=== PATIENT | female | born 1950 | race Caucasian/White ===

== ENCOUNTER → 2018-03-29 06:58 | Day surgery (SDC) | payer MEDICARE, OTHER, SELFPAY ==
[2018-03-29] MEDS: PROPARACAINE 0.5% OPHTH SOL 2 DROPS EYE-OP (07:22)
[2018-03-29] MEDS: CYCLOPENTOLATE 1% OPHTH 2.5 DROPS, PHENYLEPHRINE 2.5% OPHTH 2.5 DROPS, TROPICAMIDE 1% O... EYE-OP (07:25)
[2018-03-29 07:26] VITALS: BP 162/78; PULSE 70; RESP 18; TEMP 35.9; O2SAT 98; BMI 42.6
--- NOTE | 2018-03-29 07:43 | SUR.OPER ---
Supine on eye stretcher, head on extension cradle secured with tape. Arms tucked at sides with blanket. Pillow under knees.
[2018-03-29] MEDS: CHONDROIDTIN/SOD HYALURONATE 1.05 ML SYRINGE INTRAOCULA ×2 (07:52→08:09)
[2018-03-29] MEDS: TETRACAINE 0.5% OPHTH DROPS 15 ML 1 DROPS EYE-LEFT (08:01)
[2018-03-29] MEDS: BALANCED SALT IRRIG SOLN NO.2 500 ML, EPINEPHrine 1 MG IRR (08:05)
[2018-03-29] MEDS: LIDOCAINE JELLY 2% 5 ML 1 APPLIC TOP (08:05)
[2018-03-29] MEDS: MOXIFLOXACIN OPHTH DROPS 3 ML BOTTLE 2 DROPS INJ (08:14)
[2018-03-29] MEDS: PHENYLEPHRINE/LIDOCAINE 3ML VIAL (OR) EYE-OP (08:14)
[2018-03-29] MEDS: TRIAMCINOLONE 50 MG/5 ML VIAL INJ (08:15)
[2018-03-29 08:24] VITALS: BP 127/62; TEMP 36.2
--- NOTE | 2018-03-29 08:33 | PM.OP.1 ---
Operative Date/Time/Diagnoses - Pre-op diagnosis: Cataract Left eye Post-op diagnosis: same Procedure & Clinicians Procedure: Cataract Surgery Same procedure as scheduled: Yes Surgeon: Enoch Jacobs Anesthesia Type: Other (Topical) Operative Notes Procedure in detail: Patient brought to the operating suite. Tetracaine drops placed in the left eye. Marking instrument was used to angie the vertical and horizontal meridians. Patient was prepped and draped in sterile manner. Wire lid speculum was placed in the eye. Marking pen was used to angie the 65 degree meridian. Betadine drops were placed on the eye. This was irrigated. Lidocaine jelly was placed on the eye. A paracentesis port was created with a side-port blade. 2 mL lidocaine phenylephrine was injected into the anterior chamber. The anterior chamber was deepened with viscoelastic. 2.65 mm keratome was used to create a temporal clear corneal incision. Cystitome and Utrata forceps were used to create continuous tear capsulorrhexis. Balanced salt solution was used to hydro dissect the nucleus. The phacoemulsification handpiece was inserted and the nucleus was removed using the stop and chop technique. The irrigation aspiration handpiece was inserted and the remaining cortex was removed. Anterior chamber was deepened with viscoelastic. An Seth [id number] intraocular lens with a power of 14.5 was injected into the capsular bag. Irrigation aspiration handpiece was inserted and the remaining viscoelastic was removed. The lens was rotated to the 65 degree meridian. Incision was hydrated with balanced salt solution and found to be leak free with pressure with Weck-Tootie sponges. 0.1 mL Vigamox injected anterior chamber. 0.3 mL Kenalog 10 mg was injected subconjunctivally. Lid speculum was removed patient left operating room in excellent condition. Complications: none Condition: stable Disposition: same day surgery
--- NOTE | 2018-03-29 08:40 | SUR.PHASEII ---
Dr. Anguiano didn't need want a blood glucose post-op.
--- NOTE | 2018-03-29 08:42 | PM.PREOP ---
Pre-operative Note Interval Note Pre-op Check: History & Physical Reviewed
== END ==
PROVIDERS: PCP Nurse Practitioner Family; Visit Provider Ophthalmology
DX: H25.12 Age-related nuclear cataract, left eye (principal); E11.9 Type 2 diabetes mellitus without complications; Z79.84 Long term (current) use of oral hypoglycemic drugs; R01.1 Cardiac murmur, unspecified; I10 Essential (primary) hypertension
CPT/HCPCS: J0171; J2250; J3010; J3301; V2787

== ENCOUNTER → 2018-04-21 10:24 | Outpatient (CLI) | payer MEDICARE, OTHER, SELFPAY ==
[2018-04-21 11:26] LABS: Albumin 4.2 g/dL (3.5-5.0); Blood Urea Nitrogen 21 mg/dL (7-17); Calcium 10.1 mg/dL (8.4-10.2); Carbon Dioxide 26 mmol/L (22-32); Chloride 103 mmol/L (98-107); Estimated Glomerular Filt Rate > 60.0 mL/min (>60); Glucose 156 mg/dL (80-110); HEMOLYSIS < 15 (0-50); Phosphorous 3.6 mg/dL (2.8-4.1); Potassium 4.7 mmol/L (3.4-5.1); Sodium 141 mmol/L (137-145)
== END ==
PROVIDERS: PCP Nurse Practitioner Family; Visit Provider Nurse Practitioner Family
DX: E11.8 Type 2 diabetes mellitus with unspecified complications (principal); L90.0 Lichen sclerosus et atrophicus; F33.9 Major depressive disorder, recurrent, unspecified; I10 Essential (primary) hypertension; E03.9 Hypothyroidism, unspecified; R53.83 Other fatigue; E87.5 Hyperkalemia
CPT/HCPCS: 36415; 80069; 83036

== ENCOUNTER 2018-05-03 13:48 | Day surgery (SDC) | payer MEDICARE, OTHER, SELFPAY ==
[2018-05-03] MEDS: PROPARACAINE 0.5% OPHTH SOL 2 DROPS EYE-OP (14:25)
[2018-05-03] MEDS: CATARACT EYE COMPOUND (10 DROPS/SYRINGE) 3 DROPS EYE-OP (14:31)
[2018-05-03 14:34] VITALS: BP 161/69; PULSE 77; RESP 16; TEMP 36.8; O2SAT 98; BMI 43.2
--- NOTE | 2018-05-03 15:24 | PM.PREOP ---
Pre-operative Note Interval Note Pre-op Check: History & Physical Reviewed by Physician
--- NOTE | 2018-05-03 15:24 | PM.OP.1 ---
Operative Date/Time/Diagnoses - Pre-op diagnosis: Cataract Right eye Post-op diagnosis: same Procedure & Clinicians Procedure: Cataract Surgery Same procedure as scheduled: Yes Surgeon: Enoch Jacobs Anesthesia Type: MAC +/- and Sedation Operative Notes Procedure in detail: Patient brought to the operating suite. Tetracaine drops placed in the right eye. Marking instrument was used to angie vertical and horizontal meridians. Patient was prepped and draped in sterile manner. Wire lid speculum was placed in the eye. Marking instrument was used to angie 115 degree meridian. Betadine drops were placed on the eye. This was irrigated. Lidocaine jelly was placed on the eye. A paracentesis port was created with a side-port blade. 0.1 mL 1% preservative free lidocaine was injected into the anterior chamber. The anterior chamber was deepened with viscoelastic. 2.6 mm keratome was used to create a temporal clear corneal incision. Cystotome and Utrata forceps were used to create continuous tear capsulorrhexis. Balanced salt solution was used to hydro dissect the nucleus. The phacoemulsification handpiece was inserted and the nucleus was removed using the stop and chop technique. The irrigation aspiration handpiece was inserted and the remaining cortex was removed. Anterior chamber was deepened with viscoelastic. An Seth [id number] intraocular lens with a power of 14.5 was injected into the capsular bag. Irrigation aspiration handpiece was inserted and the remaining viscoelastic was removed. Lens was rotated to the 115 degree meridian. Incision was hydrated with balanced salt solution and found to be leak free with pressure with Weck-Tootie sponges. 0.1 mL Vigamox injected anterior chamber. 0.3 mL Kenalog 10 mg was injected subconjunctivally. Lid speculum was removed. The patient left the operating room in excellent condition. Complications: none Condition: stable Disposition: same day surgery
[2018-05-03] MEDS: CHONDROIDTIN/SOD HYALURONATE 1.05 ML SYRINGE INTRAOCULA (15:39)
[2018-05-03] MEDS: TRIAMCINOLONE 50 MG/5 ML VIAL INJ (15:39)
[2018-05-03] MEDS: MOXIFLOXACIN OPHTH DROPS 3 ML BOTTLE 2 DROPS INJ (15:39)
[2018-05-03] MEDS: TETRACAINE 0.5% OPHTH DROPS 15 ML 2 DROPS EYE-RIGHT (15:40)
[2018-05-03] MEDS: BALANCED SALT IRRIG SOLN NO.2 500 ML, EPINEPHrine 1 MG IRR (15:40)
[2018-05-03] MEDS: PHENYLEPHRINE/LIDOCAINE 3ML VIAL (OR) EYE-OP (15:41)
[2018-05-03] MEDS: LIDOCAINE JELLY 2% 5 ML 1 APPLIC TOP (15:42)
[2018-05-03 15:55] VITALS: BP 158/68; PULSE 76; RESP 16; TEMP 36.6; O2SAT 98
== END 2018-05-03 16:16 | disposition home or self-care (01) ==
PROVIDERS: PCP Nurse Practitioner Family; Visit Provider Ophthalmology
DX: H25.11 Age-related nuclear cataract, right eye (principal); E11.9 Type 2 diabetes mellitus without complications; Z79.84 Long term (current) use of oral hypoglycemic drugs; I10 Essential (primary) hypertension; R01.1 Cardiac murmur, unspecified
CPT/HCPCS: J0171; J2250; J3010; J3301; V2787

== ENCOUNTER → 2018-09-22 14:30 | Outpatient (CLI) | payer MEDICARE, OTHER, SELFPAY ==
--- NOTE | 2018-09-22 | DI.MG.S_ITS ---
UNILATERAL LEFT DIGITAL DIAGNOSTIC MAMMOGRAM 3D/2D SHORT-TERM FOLLOW-UP: 09/22/2018 CLINICAL: Patient returns for a 6 month follow up of the left breast. Comparison is made to exams dated: 01/18/2018 ultrasound, 01/18/2018 mammogram, and 01/06/2018 mammogram - [facility]. There are scattered fibroglandular elements in left breast. Previously identified 0.7 cm oval low density asymmetry with a circumscribed margin in the left breast at 11 o'clock middle depth seen on comparison diagnostic mammogram of 01/18/2018 is no longer seen. No significant masses, calcifications, or other findings are seen in the breast. IMPRESSION: INCOMPLETE: NEEDS ADDITIONAL IMAGING EVALUATION Previously identified 0.7 cm oval low density asymmetry with a circumscribed margin in the left breast at 11 o'clock middle depth seen on comparison diagnostic mammogram of 01/18/2018 is no longer seen. A targeted ultrasound is recommended and will be performed immediately following this exam. This exam was interpreted at Station ID: [id number]. NOTE: For mammograms, a report in lay terms will be sent to the patient. Approximately 15% of breast malignancies will not be visualized mammographically. In the management of a palpable breast mass, a negative mammogram must not discourage biopsy of a clinically suspicious lesion. Electronically Signed By: Colby Houser M.D. ecl/:09/23/2018 10:27:13 letter sent: Additional Imaging Needed ACR BI-RADS Category 0: Incomplete 3340F
--- NOTE | 2018-09-22 | DI.US.S_ITS ---
LIMITED ULTRASOUND OF LEFT BREAST: 09/22/2018 CLINICAL: Follow up from addtional views. Comparison is made to exams dated: 09/22/2018 mammogram, 01/18/2018 ultrasound, and 01/18/2018 mammogram - [facility]. Real-time and Doppler ultrasound of the left breast 10 o'clock region were performed. Toscano scale images of the real-time examination were reviewed. Prior comparison ultrasound of 01/18/2018 demonstrated a 0.6 cm x 0.5 cm x 0.6 cm oval avascular mixed echogenic mass with an indistinct margin in the left breast at 10 o'clock position 20 cm from the nipple. This oval mass could not be detected on the current exam, and appears to have resolved. IMPRESSION: NEGATIVE Previously identified 0.6 cm mass in the left breast at 10 o'clock position 20 cm from the nipple on comparison ultrasound of 01/18/2018 is no longer detectable on the current exam. This mass was previously suspected to represent fat necrosis/injury and appears to have resolved. There is no sonographic evidence of malignancy in the imaged left breast. Return to annual mammogram screening schedule is recommended, next due in December 2018. This exam was interpreted at Station ID: [id number]. Electronically Signed By: Colby Houser M.D. ecl/:09/23/2018 10:32:11 letter sent: Normal Exam Ultrasound BI-RADS: 1 Negative
== END ==
PROVIDERS: Visit Provider Nurse Practitioner Family
DX: R92.8 Other abnormal and inconclusive findings on diagnostic imaging of breast (principal)
CPT/HCPCS: 76642; 77065; G0279

== ENCOUNTER → 2019-01-26 11:21 | Outpatient (CLI) | payer MEDICARE, OTHER, SELFPAY ==
--- NOTE | 2019-01-26 | DI.RAD.S_ITS ---
PROCEDURE: XR LUMBAR SPINE 2-3V INDICATIONS: LOW BACK PAIN TECHNIQUE: 3 views of the lumbar spine were acquired. COMPARISON: None. FINDINGS: Bones: 6 [id number] vertebrae are present. The last lumbar-type vertebra is designated as the lumbarized S1 for the purpose of this report. There is grade 1 anterolisthesis of L5 on S1. No vertebral body compression fractures. No suspicious bony lesions. There is mild to moderate degenerative disc disease throughout the lumbar spine. Moderate to severe facet arthropathy at L3-L4, L4-L5 and L5-S1. Soft tissues: Overlying bowel gas pattern is normal. No suspicious soft tissue calcifications. IMPRESSION: 1. Transitional anatomy. Please confirm vertebral levels prior to any intervention procedure with surgery. 2. Degenerative disc and facet disease in lumbar spine. Dictated by: Mike Sheridan M.D. on 01/26/2019 at 17:23 Approved by: Mike Sheridan M.D. on 01/26/2019 at 17:27
== END ==
PROVIDERS: PCP Physician Assistant; Visit Provider Physician Assistant
DX: M54.5 Low back pain (principal); M51.36 Other intervertebral disc degeneration, lumbar region; M47.816 Spondylosis without myelopathy or radiculopathy, lumbar region; M47.817 Spondylosis without myelopathy or radiculopathy, lumbosacral region
CPT/HCPCS: 72100

== ENCOUNTER → 2019-02-15 07:34 | Outpatient (CLI) | payer MEDICARE, OTHER, SELFPAY ==
--- NOTE | 2019-02-15 | DI.MRI.S_ITS ---
PROCEDURE: MR LUMBAR SPINE WO CON INDICATIONS: LOW BACK PAIN TECHNIQUE: Noncontrast sagittal T1 spin echo and T2 fast echo, sagittal STIR, axial T1 and T2 fast spin echo through the lumbar spine. In cases with scoliosis, additional coronal T2 fast spin echo may be performed. COMPARISON: [facility], CR, XR LUMBAR SPINE 2-3V, 01/26/2019, 11:27. FINDINGS: Image quality: Excellent. Alignment and Curvature: There is minimal retrolisthesis at T12-L1, L1-L2, and L3-L4. Mild grade 1 anterolisthesis is seen at L4-L5. No associated pars defects are seen. Minimal dextroconvex scoliotic curvature can be seen on relay operator images. Bone Marrow: Marrow is of normal overall signal. No acute vertebral body compression fractures. Spinal Cord: Conus medullaris terminates at the L1 level. Visualized cord demonstrates normal signal and size. Paraspinous Soft Tissues: No paravertebral masses. Lower thoracic spine degenerative changes are seen, including bridging anterior osteophytes. There is partial fusion of the T10 and T11 vertebral bodies anteriorly and on the left. Mild to moderate neural foraminal narrowing can be seen at T10-T11 and T11-T12. T12-L1: Moderate loss of disc height is seen. Loss of disc signal is seen. Bridging anterior osteophytes are seen. Posteriorly projecting endplate osteophytes are seen at this level. Moderate disc bulge is seen, which is eccentric to the left. There is a left foraminal/left lateral disc osteophyte protrusion seen. There is moderate to severe left-sided neural foraminal narrowing seen, with associated impingement upon the exiting T12 nerve root, as on series 3 image 12. Mild right-sided neural foraminal narrowing is seen. Minimal central canal narrowing is seen. L1-L2: Mild loss of disc height is seen. Loss of disc signal is seen. Moderate disc bulge is seen, which is eccentric to the left. There is a central disc protrusion seen. [id number]-[id number] facet hypertrophy is seen. There is associated moderate hypertrophy of the ligamentum flavum. Moderate bilateral neural foraminal narrowing is seen at this level. Moderate central canal narrowing is seen. L2-L3: The disc height is well-preserved. Loss of disc signal is seen at this level. Moderate generalized disc bulge is seen. Moderate facet joint hypertrophy is seen. There is moderate right-sided and mild to moderate left-sided neural foraminal narrowing seen. Moderate central canal narrowing is seen. L3-L4: Mild to moderate loss of disc height and disc signal are seen. Reactive marrow endplate changes are seen, which are hyperintense on T1-weighted and T2-weighted imaging and most consistent with fatty metaplasia (Modic type II changes). Moderate to prominent disc bulge is seen, which is eccentric to the right. Moderate to prominent facet hypertrophy is seen. There is moderate to severe right-sided neural foraminal narrowing, with associated impingement upon the exiting right L3 nerve root. Moderate left-sided neural foraminal narrowing is seen. At least moderate central canal narrowing is seen. L4-L5: The disc height is well-preserved. Loss of disc signal is seen at this level. Moderate disc bulge is seen, which is eccentric to the left. There is a left lateral disc osteophyte protrusion seen, as on series 5 image 28. Moderate to prominent facet hypertrophy is seen. There is mild right-sided and no left-sided neural foraminal narrowing seen. Moderate central canal narrowing is seen. L5-S1: The disc height is well-preserved. Loss of disc signal is seen at this level. Moderate disc bulge is seen, which is eccentric to the left. Prominent facet hypertrophy is seen. There is mild right-sided and no significant left-sided neural foraminal narrowing seen. Mild central canal narrowing is seen. IMPRESSION: Multiple levels of relatively prominent thoracolumbar degenerative change are seen. Dictated by: Rd Eubanks M.D. on 02/15/2019 at 9:04 Approved by: Rd Eubanks M.D. on 02/15/2019 at 9:13
== END ==
PROVIDERS: PCP Physician Assistant; Visit Provider Physician Assistant
DX: M54.5 Low back pain (principal); M47.815 Spondylosis without myelopathy or radiculopathy, thoracolumbar region; M47.816 Spondylosis without myelopathy or radiculopathy, lumbar region
CPT/HCPCS: 72148

== ENCOUNTER → 2019-02-24 13:33 | Outpatient (CLI) | payer MEDICARE, OTHER, SELFPAY ==
--- NOTE | 2019-02-24 | DI.MG.S_ITS ---
BILATERAL DIGITAL SCREENING MAMMOGRAM 3D/2D WITH CAD: 02/24/2019 CLINICAL: Routine screening. Family history of breast cancer. Comparison is made to exams dated: 01/06/2018 mammogram and 10/05/2016 mammogram - [facility]. There are scattered fibroglandular elements in both breasts. Current study was also evaluated with a Computer Aided Detection (CAD) system. There are benign calcifications in both breasts. No significant masses, calcifications, or other findings are seen in either breast. There has been no significant interval change. IMPRESSION: There is no mammographic evidence of malignancy. A 1 year screening mammogram is recommended. This exam was interpreted at Station ID: [id number]. NOTE: For mammograms, a report in lay terms will be sent to the patient. Approximately 15% of breast malignancies will not be visualized mammographically. In the management of a palpable breast mass, a negative mammogram must not discourage biopsy of a clinically suspicious lesion. Electronically Signed By: Ki castro/pb:02/24/2019 19:52:04 letter sent: Normal Exam ACR BI-RADS Category 2: Benign Finding(s) 3342F
== END ==
PROVIDERS: PCP Physician Assistant; Visit Provider Physician Assistant
DX: Z12.31 Encounter for screening mammogram for malignant neoplasm of breast (principal); Z80.3 Family history of malignant neoplasm of breast
CPT/HCPCS: 77063; 77067

== ENCOUNTER → 2019-12-25 15:46 | Outpatient (CLI) | payer MEDICARE, OTHER, SELFPAY ==
--- NOTE | 2019-12-25 | DI.RAD.S_ITS ---
PROCEDURE: XR FOOT LT MIN 3V INDICATIONS: LEFT FOOT PAIN TECHNIQUE: 3 views of the foot were acquired. COMPARISON: None. FINDINGS: Bones: No fractures or dislocations. No suspicious bony lesions. Scattered IP degenerative narrowing is present most notable the first MTP joint. Calcaneal spur is present. Soft tissues: No tibiotalar joint effusion. Achilles tendon appears normal. IMPRESSION: Degenerative changes without visualized acute osseous abnormality. Dictated by: Ayaka Dow M.D. on 12/25/2019 at 17:03 Approved by: Ayaka Dow M.D. on 12/25/2019 at 17:03
== END ==
PROVIDERS: PCP Physician Assistant; Referring Provider Student in an Organized Health Care Education/Training Program; Visit Provider Student in an Organized Health Care Education/Training Program
DX: M79.672 Pain in left foot (principal); M77.32 Calcaneal spur, left foot
CPT/HCPCS: 73630

== ENCOUNTER → 2021-02-21 11:41 | Outpatient (CLI) | payer MEDICARE, OTHER, SELFPAY ==
--- NOTE | 2021-02-21 11:42 | DI.MG.S_ITS ---
BILATERAL DIGITAL SCREENING MAMMOGRAM 3D/2D WITH CAD: 02/21/2021 CLINICAL: Routine screening. Family history of breast cancer. Comparison is made to exams dated: 02/24/2019 mammogram, 01/06/2018 mammogram, and 09/22/2018 mammogram - [facility]. The tissue of both breasts is predominantly fatty. Current study was also evaluated with a Computer Aided Detection (CAD) system. There are benign calcifications in both breasts. No significant masses, calcifications, or other findings are seen in either breast. There has been no significant interval change. IMPRESSION: BENIGN There is no mammographic evidence of malignancy. A 1 year screening mammogram is recommended. This exam was interpreted at Station ID: [id number]. NOTE: For mammograms, a report in lay terms will be sent to the patient. Approximately 15% of breast malignancies will not be visualized mammographically. In the management of a palpable breast mass, a negative mammogram must not discourage biopsy of a clinically suspicious lesion. Electronically Signed By: Boris hoffman/pb:02/21/2021 12:20:45 letter sent: Normal Exam ACR BI-RADS Category 2: Benign Finding(s) 3342F
== END ==
PROVIDERS: PCP Physician Assistant; Referring Provider Physician Assistant; Visit Provider Physician Assistant
DX: Z12.31 Encounter for screening mammogram for malignant neoplasm of breast (principal)
CPT/HCPCS: 77063; 77067

== ENCOUNTER 2021-05-19 20:06 | Emergency (ER) | payer MEDICARE, OTHER, SELFPAY ==
[2021-05-19 20:09] VITALS: BP 193/80; PULSE 90; RESP 15; TEMP 36.7; O2SAT 99; BMI 42.0
[2021-05-19 20:29] LABS: Add Manual Diff / Slide Review NO; Basophils Absolute Auto 100 /uL (0-100); Basophils Percent Auto 0.8 % (0-2); Eosinophils Absolute Auto 500 /uL (0-450); Eosinophils Percent Auto 4.1 % (2-4); Hematocrit 36.2 % (36-46); Hemoglobin 11.8 g/dL (12.0-16.0); Lymphocytes Absolute Auto 3100 /uL (1100-4500); Lymphocytes Percent Auto 26.1 % (25-40); Mean Corpuscular HGB Conc 32.8 % (30-36); Mean Corpuscular Hemoglobin 28.8 PG (26-34); Mean Corpuscular Volume 87.8 fL (80-100); Monocytes Absolute Auto 800 /uL (0-900); Monocytes Percent Auto 6.5 % (3-14); Neutrophils Absolute Auto 7400 /uL (1500-7000); Neutrophils Percent Auto 62.5 % (50-75); Platelet Count 260 X10^3/uL (150-400); Red Blood Cell Count 4.12 X10^6/uL (4.0-5.2); Red Cell Distribution Width 14.4 % (11.6-14.8); White Blood Cell Count 11.8 X10^3/uL (4.5-11.0)
[2021-05-19 20:44] LABS: C-Reactive Protein Quant 1.2 mg/dL (<1.0); Uric Acid 8.3 mg/dL (2.5-6.2)
[2021-05-19 21:07] LABS: Erythrocyte Sedimentation Rate 29 MM/HR (0-20)
[2021-05-19] MEDS: HYDROCODONE/ACET 5/325 PREPACK 1 BOTTLE MISC (22:22)
[2021-05-19] MEDS: COLCHICINE 0.6 MG TABLET 1.8 MG PO (22:30)
[2021-05-19 22:34] VITALS: BP 178/72; PULSE 77; RESP 18; O2SAT 99
--- NOTE | 2021-05-20 06:19 | ED_ITS ---
HPI - Extremity Problem General Chief complaint: Extremity Problem,Nontraumatic Stated complaint: gout or broken foot Time Seen by Provider: 05/19/21 20:15 Source: patient Mode of arrival: Ambulatory Limitations: no limitations History of Present Illness HPI Narrative: 71-year-old female nonsmoker with history of hypertension diabetes presents with a chief complaint of gradually worsening right foot pain over the past few days. She denies any obvious injury or overuse. She states over the past day or to the ball of her foot and base of her big toe has become increasingly painful and red. She states she does have a history of gout and this does remind her of it. She denies any numbness, tingling or weakness. She denies any fever or chills. She states her pain is worse with motion and improves with rest. She does state that she has been eating crab but denies any other dietary indiscretions. Related Data Home Medications Medication Instructions Recorded Confirmed [DIABETIC VITAMINS] PO QDAY #0 08/19/16 01/17/20 aspirin 81 mg tablet,delayed 81 mg PO DAILY 12/18/19 01/17/20 release insulin glargine U-300 conc 300 30 unit SUBCUT DAILY 12/18/19 01/17/20 unit/mL (1.5 mL) subcutaneous pen lisinopril 40 mg tablet 40 mg PO DAILY 12/18/19 01/17/20 melatonin 5 mg tablet 5 mg PO BEDTIME PRN 12/18/19 01/17/20 metformin 750 mg tablet,extended 750 mg PO DAILY 12/18/19 01/17/20 release 24 hr methocarbamol 500 mg tablet 500 mg PO QID PRN 12/18/19 01/17/20 Previous Rx's Medication Instructions Recorded acyclovir 400 mg tablet 400 mg PO BID #45 tab 09/16/16 pneumoc 13-kaiden conj-dip cr(PF) 0.5 0.5 ml IM X1 #1 ea 09/16/16 mL IM syringe (Prevnar 13 (PF)) levothyroxine 137 mcg tablet 137 mcg PO QAM #90 tab 05/31/17 (Synthroid) zoster vaccine live (PF) 19,400 0.5 ml SQ X1 #0.5 ml 05/31/17 unit/0.65 mL subcutaneous suspension (Zostavax (PF)) Glucose: Home Monitor / BID #1 06/03/17 Glucose: Test Strips str BID #100 06/03/17 Test Strips - Freestyle str BID #180 06/10/17 indomethacin 25 mg capsule 25 mg PO TID #30 cap 05/19/21 Allergies Allergy/AdvReac Type Severity Reaction Status Date / Time Sulfa (Sulfonamide Allergy Severe SWOLLEN Verified 03/29/18 07:20 Antibiotics) THROAT [SULFA (SULFONAMIDE ANTIBIOTICS)] exenatide [From BYDUREON] AdvReac Severe Pancreatitis Verified 03/29/18 07:20 Swelling in throat Mpuhojt-Aqh-Aip Reductase AdvReac Intermediate RASH AND Verified 03/29/18 07:20 Inhibitor HIVES [ISSKOPT-DYK-IEI REDUCTASE INHIBITOR] Review of Systems Review of Systems Narrative: GENERAL: Denies chills, fatigue, malaise, fever, sweats. HEENT: Denies sinus pain, ear pain, sore throat, difficulty swallowing, dizziness. RESPIRATORY: Denies dyspnea, cough, wheezing, hemoptysis, sputum. CARDIOVASCULAR: Denies chest pain, palpitations, orthopnea, edema, GASTROINTESTINAL: Denies nausea, vomiting, abdominal pain, diarrhea, constipation, melena. : Denies dysuria, frequency, incontinence, hematuria, urinary retention. MUSCULOSKELETAL: see HPI SKIN: see HPI NEUROLOGIC: Denies weakness, headache, numbness, change in speech, confusion, seizures, incoordination. PSYCHIATRIC: No concerning psychosocial issues. 12 point review of systems is negative except for those stated above Patient History Medical History (Updated 05/19/21 @ 22:03 by Lambert Pagan DO) Diabetes Fatigue HTN (hypertension) Morbid obesity with body mass index (BMI) of 40.0 to 49.9 Obstructive sleep apnea Sleep apnea Snoring Surgical History Status post cholecystectomy Family History Brother Coronary artery disease involving [place] coronary artery of [place] heart, angina presence unspecified Peripheral polyneuropathy Father Type 2 diabetes mellitus with other circulatory complication, unspecified correction insulin use status History of asbestosis Alcoholism Grandmother History of breast cancer Mother Chronic obstructive pulmonary disease, unspecified COPD type History of breast cancer History of cervical cancer Alcoholism Sister History of breast cancer Controlled type 2 diabetes mellitus without complication, unspecified correction insulin use status Social History household members: none Smoking Status: Never smoker Smoking Status: Never smoker alcohol intake frequency: 0-2 drinks per day Substance Use Type: does not use Exam Narrative Exam Narrative: GEN: AOx3 and in mild distress EYES: Pupils are equal, round, and reactive to light and accommodation. Extraoccular muscles are intact bilaterally. There is no subconjunctival hemorrhage or exudate. CHEST: Lungs are clear to auscultation bilaterally and free of wheezes, rales, or rhonchi. Heart rate is regular rhythm, there are no murmurs, clicks, rubs, or gallops. There is no chest wall tenderness. ABD: Abdomen is soft and nontender. There is no guarding or rebound. Bowel sounds are normal in all 4 quadrants. There is no mass or organomegaly. EXT: Patient has pain, redness, warmth and swelling of the 1st MTP of her right foot. There is no fluctuance, induration or drainage. There are no red streaks.. SKIN: Warm, pink, and dry. No erythema or rash Initial Vital Signs Initial Vital Signs: Vital Signs Temperature 98.1 F 05/19/21 20:09 Pulse Rate 90 05/19/21 20:09 Respiratory Rate 15 05/19/21 20:09 Blood Pressure 193/80 H 05/19/21 20:09 Pulse Oximetry 99 05/19/21 20:09 Course Orders Ordered: Discontinued Medications Hydrocodone Bitart/Acetaminophen (Hydrocodone/Acet 5/325 Prepack) 1 bottle MISC SEEINSTR ONE Stop: 05/19/21 22:02 Last Admin: 05/19/21 22:22 Dose: 1 bottle Documented by: EVITA Colchicine (Colchicine 0.6 Mg Tablet) 1.8 mg PO NOW ONE Stop: 05/19/21 22:00 Last Admin: 05/19/21 22:30 Dose: 1.8 mg Documented by: EVITA Indomethacin (Indomethacin 25 Mg Capsule) 25 mg PO NOW ONE Stop: 05/19/21 22:00 Last Admin: 05/19/21 22:22 Dose: Not Given Documented by: EVITA Vital Signs Vital signs: Vital Signs - 8 hr 05/19/21 22:34 Pulse Rate 77 Respiratory Rate 18 Blood Pressure 178/72 H Pulse Oximetry 99 MDM - Extremity (Nontraumatic) Lab Data Result diagrams: 05/19/21 20:23 Labs: Lab Results 05/19/21 05/19/21 Range/Units 20:23 20:23 WBC 11.8 H (4.5-11.0) X10^3/uL RBC 4.12 (4.0-5.2) X10^6/uL Hgb 11.8 L (12.0-16.0) g/dL Hct 36.2 (36-46) % MCV 87.8 (80-100) fL MCH 28.8 (26-34) PG MCHC 32.8 (30-36) % RDW 14.4 (11.6-14.8) % Plt Count 260 (150-400) X10^3/uL Neut % (Auto) 62.5 (50-75) % Lymph % (Auto) 26.1 (25-40) % Marshall % (Auto) 6.5 (3-14) % Eos % (Auto) 4.1 H (2-4) % Baso % (Auto) 0.8 (0-2) % Neut # (Auto) 7400 H (1703-1025) /uL Lymph # (Auto) 3100 (8754-5410) /uL Marshall # (Auto) 800 (0-900) /uL Eos # (Auto) 500 H (0-450) /uL Baso # (Auto) 100 (0-100) /uL ESR 29 H (0-20) MM/HR Uric Acid 8.3 H (2.5-6.2) mg/dL C-Reactive Protein 1.2 H (<1.0) mg/dL MDM Narrative Medical decision making narrative: Multiple diagnoses considered including cellulitis, gout, orthopedic injury. Given the elevation in inflammatory markers as well as uric acid, her recent dietary indiscretions and history of gout this seems to be the most likely diagnosis. Return precautions given and questions answered to her apparent satisfaction Discharge Plan Departure Patient Disposition: Home Clinical Impression: Gout attack Qualifiers: Gout site: toe Gout etiology: unspecified cause Laterality: right Qualified Code(s): M10.9 - Gout, unspecified Instructions: DI for Gout Activity Restrictions/Additional Instructions: *You have been diagnosed with [gouty arthritis] *What to do: *Please continue to take your regular medications as directed. [x ] New medication prescriptions sent to your pharmacy: [ ] [ ] New medication written as a paper prescription [ ] No new medications given *Please follow up with your primary care provider in 2-3 days, call for an appointment. Let them know you were seen in the Emergency Department and that we ask that you be seen in follow up. We will electronically transmit a record of today's note if your PCP is in our system *If you do not have a primary care provider please contact the [facility] Resource line at [phone]. They will ask some questions about your medical history and help get you set up with a doctor in the community. *Return to Emergency Department if you should have any new, worsening or concerning symptoms, such as [fever greater than 101 F, shaking chills, worsening pain, persistent vomiting or other bothersome symptoms] Prescriptions: New indomethacin 25 mg capsule 25 mg PO TID Qty: 30 RF: 0 No Action [DIABETIC VITAMINS] PO QDAY Qty: 0 RF: 0 pneumoc 13-kaiden conj-dip cr(PF) [Prevnar 13 (PF)] 0.5 ML syringe 0.5 ml IM X1 Qty: 1 RF: 0 acyclovir 400 MG tablet 400 mg PO BID Qty: 45 RF: 1 zoster vaccine live (PF) [Zostavax (PF)] 19,400 UNIT/0.65 ML suspension for reconstitution 0.5 ml SQ X1 Qty: 0.5 RF: 0 levothyroxine [Synthroid] 137 MCG tablet 137 mcg PO QAM Qty: 90 RF: 1 Glucose: Home Monitor BID Qty: 1 RF: 0 Glucose: Test Strips BID Qty: 100 RF: 3 Test Strips - Freestyle BID Qty: 180 RF: 3 metformin 750 mg tablet extended release 24 hr 750 mg PO DAILY RF: 0 lisinopril 40 mg tablet 40 mg PO DAILY RF: 0 insulin glargine U-300 conc 300 unit/mL (1.5 mL) insulin pen 30 unit SUBCUT DAILY RF: 0 methocarbamol 500 mg tablet 500 mg PO QID PRNRF: 0 aspirin 81 mg tablet,delayed release (DR/EC) 81 mg PO DAILY RF: 0 melatonin 5 mg tablet 5 mg PO BEDTIME PRNRF: 0 Referrals: Dixie Penaloza PA-C [Primary Care Provider] -
--- NOTE | 2021-05-21 14:48 | PC.NURSE ---
pt called stated [facility] giv[facility] gave her the wrong medication. the pt then asked if we could change the original prescription. i explained its a different dr working today and she could see her pcp, the walk in clinic or come back. she states she'll see Tremaine tomorrow.
== END 2021-05-19 22:35 | disposition home or self-care (01) ==
PROVIDERS: Emergency Provider Emergency Medicine; PCP Physician Assistant
DX: M10.9 Gout, unspecified (principal)
CPT/HCPCS: 36415; 84550; 85025; 85651; 86140; 99283

== ENCOUNTER → 2022-03-24 10:28 | Outpatient (CLI) | payer MEDICARE, OTHER, SELFPAY | PROVIDERS: PCP Physician Assistant; Referring Provider Internal Medicine; Visit Provider Internal Medicine | DX: M85.89 Other specified disorders of bone density and structure, multiple sites (principal); Z13.820 Encounter for screening for osteoporosis; Z78.0 Asymptomatic menopausal state | CPT/HCPCS: 77080 ==

== ENCOUNTER 2022-10-14 15:48 | Emergency (ER) | payer MEDICARE, OTHER, SELFPAY ==
[2022-10-14 15:53] VITALS: BP 171/70; PULSE 98; RESP 16; TEMP 37.3; O2SAT 97; BMI 43.0
--- NOTE | 2022-10-14 16:44 | DI.RAD.S_ITS ---
PROCEDURE: XR FOOT RT MIN 3V INDICATIONS: gouty MTP great toe? TECHNIQUE: Three views of the foot were acquired. COMPARISON: [facility], CR, XR FOOT LT MIN 3V, 12/25/2019, 15:49. FINDINGS: Bones: No acute fracture or subluxation. There is moderate hallux valgus at the 1st MTP. There are corticated juxta-articular erosions along the medial head of the 1st metatarsal. Mild hammertoe deformity. Prominent plantar calcaneal spur. Soft tissues: No tibiotalar joint effusion. Achilles tendon appears normal. Mild soft tissue thickening along the medial side of the 1st MTP joint. No calcifications. IMPRESSION: 1. Chronic appearing changes of gout at the 1st MTP. 2. Hallux valgus. Dictated by: Joanne Jackson M.D. on 10/14/2022 at 17:08 Approved by: Joanne Jackson M.D. on 10/14/2022 at 17:10
[2022-10-14] MEDS: KETOROLAC 30 MG/ML VIAL IM (16:58)
[2022-10-14] MEDS: COLCHICINE 0.6 MG TABLET 1.2 MG PO (16:59)
--- NOTE | 2022-10-14 17:12 | ED_ITS ---
HPI - Extremity Problem <Alyssa Hernández NARROW GAUGE OPERATOR - Last Filed: 10/14/22 18:03> General Chief complaint: Extremity Problem,Nontraumatic Stated complaint: Poss blood clot, Rt leg Time Seen by Provider: 10/14/22 16:15 Source: patient Mode of arrival: Ambulatory History of Present Illness HPI Narrative: This is a 72-year-old female with history of diabetes type 2, on insulin and Victoza which she started 2 weeks ago for glycemic control, has a history of gout, states she has a flare approximately every 3 months, history of rheumatic fever with a TAVR procedure in 2020, is not anticoagulated, states that she has a prescription of allopurinol but does not take it, she is also on progesterone and Flexeril as needed for her right leg pain. She presents today with worsening right foot and leg pain with edema associated with her foot, tenderness at her great toe MTP joint, and states it has been 3 months that this has been brewing but it has only improved mildly with anti-inflammatories. States that colchicine does not help her, denies any recent trauma, denies any open wound, denies history of diabetic neuropathy but states that she does not know anything about it. She complains of right-sided restless leg which has not gotten any better recently. She did drive here today, has a history of hypothyroidism, arthritis as well, is not immunosuppressed. She sees a supervisor intermediates and states it has been approximately 3 months since she is seen that 1. Related Data Home Medications Medication Instructions Recorded Confirmed [DIABETIC VITAMINS] PO QDAY ##0 08/19/16 01/17/20 aspirin 81 mg tablet,delayed 81 mg PO DAILY 12/18/19 01/17/20 release insulin glargine U-300 conc 300 30 unit SUBCUT DAILY 12/18/19 01/17/20 unit/mL (1.5 mL) subcutaneous pen lisinopril 40 mg tablet 40 mg PO DAILY 12/18/19 01/17/20 melatonin 5 mg tablet 5 mg PO BEDTIME PRN 12/18/19 01/17/20 metformin 750 mg tablet,extended 750 mg PO DAILY 12/18/19 01/17/20 release 24 hr methocarbamol 500 mg tablet 500 mg PO QID PRN 12/18/19 01/17/20 Previous Rx's Medication Instructions Recorded acyclovir 400 mg tablet 400 mg PO BID #45 tabs 09/16/16 pneumoc 13-kaiden conj-dip cr(PF) 0.5 0.5 ml IM X1 #1 ea 09/16/16 mL IM syringe (Prevnar 13 (PF)) levothyroxine 137 mcg tablet 137 mcg PO QAM #90 tabs 05/31/17 (Synthroid) zoster vaccine live (PF) 19,400 0.5 ml SQ X1 #0.5 mL 05/31/17 unit/0.65 mL subcutaneous suspension (Zostavax (PF)) Glucose: Home Monitor / BID ##1 06/03/17 Glucose: Test Strips str BID ##100 06/03/17 Test Strips - Freestyle str BID ##180 06/10/17 indomethacin 25 mg capsule 25 mg PO TID #30 caps 05/19/21 colchicine 0.6 mg tablet 0.6 mg PO DAILY until flare is 10/14/22 gone #30 tabs hydrocodone 5 mg-acetaminophen 325 1 tab PO BID PRN pain #14 tabs 10/14/22 mg tablet naproxen 250 mg tablet 250 mg PO BID PRN pain #20 tabs 10/14/22 Allergies Allergy/AdvReac Type Severity Reaction Status Date / Time Sulfa (Sulfonamide Allergy Severe SWOLLEN Verified 03/29/18 07:20 Antibiotics) THROAT [SULFA (SULFONAMIDE ANTIBIOTICS)] exenatide [From BYDUREON] AdvReac Severe Pancreatitis Verified 03/29/18 07:20 Swelling in throat [id number] Reductase AdvReac Intermediate RASH AND Verified 03/29/18 07:20 Inhibitor HIVES [[id number] REDUCTASE INHIBITOR] Patient History <CECELIA Pelayo - Last Filed: 10/14/22 18:03> Medical History Diabetes Fatigue HTN (hypertension) Morbid obesity with body mass index (BMI) of 40.0 to 49.9 Obstructive sleep apnea Sleep apnea Snoring Surgical History Status post cholecystectomy Family History Brother Coronary artery disease involving grand traverse coronary artery of grand traverse heart, angina presence unspecified Peripheral polyneuropathy Father Type 2 diabetes mellitus with other circulatory complication, unspecified long term care phlebotomist insulin use status History of asbestosis Alcoholism Grandmother History of breast cancer Mother Chronic obstructive pulmonary disease, unspecified COPD type History of breast cancer History of cervical cancer Alcoholism Sister History of breast cancer Controlled type 2 diabetes mellitus without complication, unspecified penitentiary insulin use status Social History household members: none Smoking Status: Never smoker Smoking Status: Never smoker alcohol intake frequency: holidays/special occasions only Substance Use Type: does not use Exam <CECELIA Pelayo - Last Filed: 10/14/22 18:03> Narrative Exam Narrative: Reviewed vitals signs and nursing notes. General: cooperative, comfortable, in no acute distress, well groomed HEENT: symmetrical facial expressions, moist mucous membranes MSK: moves all extremities, neurovascularly intact, no weakness, normal tone, erythema and tenderness to the right MTP joint of the great toe, bunion associated with it, tenderness to any passive toe movement, PT and DP pulses are 2+, there is no circumferential edema or pitting edema to the right lower extremity, without wound, without sensation deficit Skin: brisk capillary refill, without pallor or erythema, all toes are neurovascularly intact Neuro: normal speech and cognition, A&O x3, ambulatory, clear speech Psych: mental status is grossly normal, congruent mood, normal affect, pleasant and cooperative Initial Vital Signs Initial Vital Signs: Vital Signs Temperature 99.2 F 10/14/22 15:53 Pulse Rate 98 H 10/14/22 15:53 Respiratory Rate 16 10/14/22 15:53 Blood Pressure 171/70 H 10/14/22 15:53 Pulse Oximetry 97 10/14/22 15:53 Oxygen Delivery Method 10/14/22 15:53 <Carloz Herrera DO - Last Filed: 10/14/22 18:05> Initial Vital Signs Initial Vital Signs: Vital Signs Temperature 99.2 F 10/14/22 15:53 Pulse Rate 98 H 10/14/22 15:53 Respiratory Rate 16 10/14/22 15:53 Blood Pressure 171/70 H 10/14/22 15:53 Pulse Oximetry 97 10/14/22 15:53 Oxygen Delivery Method 10/14/22 15:53 Course <BLANCA PelayoP - Last Filed: 10/14/22 18:03> Orders Ordered: ED Orders 10/14/22 16:44 XR foot RT min 3V Stat 10/14/22 17:10 BNP [NT-proBNP (BNP-Adult 18+)] Stat CBC Auto Diff [Complete Blood Count AUTO DIFF] Stat CMP [Comprehensive Metabolic Panel] Stat CRP [C-Reactive Protein Quant] Stat ESR [Erythrocyte Sedimentation Rate] Stat Uric Acid Stat Discontinued Medications Hydrocodone Bitart/Acetaminophen (Hydrocodone/Acet 5/325 Tablet) 1 tab PO NOW ONE Stop: 10/14/22 17:46 Last Admin: 10/14/22 17:58 Dose: 1 tab Documented By: ALIVIA Colchicine (Colchicine 0.6 Mg Tablet) 1.2 mg PO NOW ONE Stop: 10/14/22 16:46 Last Admin: 10/14/22 16:59 Dose: 1.2 mg Documented By: TREVOR Colchicine (Colchicine 0.6 Mg Tablet) 0.6 mg PO NOW ONE Stop: 10/14/22 17:46 Last Admin: 10/14/22 17:59 Dose: 0.6 mg Documented By: ALIVIA Ketorolac Tromethamine (Ketorolac 30 Mg/Ml Vial) 30 mg IM NOW ONE Stop: 10/14/22 16:46 Last Admin: 10/14/22 16:58 Dose: 30 mg Documented By: TREVOR Reevaluation(s) Reevaluation #1: Assessed patient 1 hour after she received her colchicine dose and she feels remarkably better regarding her right foot pain especially over the MTP joint, states that it does not have the fire sensation that it did previously, states the colchicine likely has been helpful, will take a 3rd dose for a total of 1.8 mg Vital Signs Vital signs: Vital Signs - 8 hr 10/14/22 15:53 Temperature 99.2 F Pulse Rate 98 H Respiratory Rate 16 Blood Pressure 171/70 H Pulse Oximetry 97 Oxygen Delivery Method Room Air <Carloz Herrera DO - Last Filed: 10/14/22 18:05> Orders Ordered: ED Orders 10/14/22 16:44 XR foot RT min 3V Stat 10/14/22 17:10 BNP [NT-proBNP (BNP-Adult 18+)] Stat CBC Auto Diff [Complete Blood Count AUTO DIFF] Stat CMP [Comprehensive Metabolic Panel] Stat CRP [C-Reactive Protein Quant] Stat ESR [Erythrocyte Sedimentation Rate] Stat Uric Acid Stat Discontinued Medications Hydrocodone Bitart/Acetaminophen (Hydrocodone/Acet 5/325 Tablet) 1 tab PO NOW ONE Stop: 10/14/22 17:46 Last Admin: 10/14/22 17:58 Dose: 1 tab Documented By: ALIVIA Colchicine (Colchicine 0.6 Mg Tablet) 1.2 mg PO NOW ONE Stop: 10/14/22 16:46 Last Admin: 10/14/22 16:59 Dose: 1.2 mg Documented By: TREVOR Colchicine (Colchicine 0.6 Mg Tablet) 0.6 mg PO NOW ONE Stop: 10/14/22 17:46 Last Admin: 10/14/22 17:59 Dose: 0.6 mg Documented By: ALIVIA Ketorolac Tromethamine (Ketorolac 30 Mg/Ml Vial) 30 mg IM NOW ONE Stop: 10/14/22 16:46 Last Admin: 10/14/22 16:58 Dose: 30 mg Documented By: TREVOR Vital Signs Vital signs: Vital Signs - 8 hr 10/14/22 15:53 Temperature 99.2 F Pulse Rate 98 H Respiratory Rate 16 Blood Pressure 171/70 H Pulse Oximetry 97 Oxygen Delivery Method Room Air MDM - Extremity (Nontraumatic) <CECELIA Pelayo - Last Filed: 10/14/22 18:03> Lab Data Result diagrams: 10/14/22 17:10 10/14/22 17:10 Labs: Lab Results 10/14/22 10/14/22 Range/Units 17:10 17:10 WBC 11.4 H (4.5-11.0) X10^3/uL RBC 4.50 (4.0-5.2) X10^6/uL Hgb 12.9 (12.0-16.0) g/dL Hct 38.3 (36-46) % MCV 85.0 (80-100) fL MCH 28.7 (26-34) PG MCHC 33.8 (30-36) % RDW 14.3 (11.6-14.8) % Plt Count 301 (150-400) X10^3/uL Neut % (Auto) 71.7 (50-75) % Lymph % (Auto) 20.7 L (25-40) % [place] % (Auto) 5.1 (3-14) % Eos % (Auto) 1.7 L (2-4) % Baso % (Auto) 0.8 (0-2) % Neut # (Auto) 8200 H (7014-0252) /uL Lymph # (Auto) 2300 (2870-6394) /uL [place] # (Auto) 600 (0-900) /uL Eos # (Auto) 200 (0-450) /uL Baso # (Auto) 100 (0-100) /uL ESR 35 H (0-20) MM/HR Sodium 139 (137-145) mmol/L Potassium 4.2 (3.4-5.1) mmol/L Chloride 103 (98-107) mmol/L Carbon Dioxide 25 (22-32) mmol/L BUN 19 H (7-17) mg/dL Creatinine 0.74 (0.52-1.04) mg/dL Estimated GFR > 60 (>60) mL/min BUN/Creatinine Ratio 25.7 H (6-22) Glucose 99 (80-110) mg/dL Uric Acid 8.2 H (2.5-6.2) mg/dL Calcium 9.5 (8.4-10.2) mg/dL Total Bilirubin 0.3 (0.2-1.3) mg/dL AST 29 (14-36) IU/L ALT 26 (<35) IU/L Alkaline Phosphatase 69 (38-126) U/L C-Reactive Protein 2.4 H (<1.0) mg/dL NT-Pro-B Natriuret Pep 224 H (<125) pg/mL Total Protein 7.8 (6.3-8.2) g/dL Albumin 4.3 (3.5-5.0) g/dL Globulin 3.5 (1.7-4.1) g/dL Albumin/Globulin Ratio 1.2 (1.0-2.8) Imaging Data Extremity x-ray #1: Radiologist's Impression: PROCEDURE:? XR FOOT RT MIN 3V ? INDICATIONS:? gouty MTP great toe? ? TECHNIQUE:? Three views of the foot were acquired.? ? COMPARISON:? [facility], CR, XR FOOT LT MIN 3V, 12/25/2019, 15:49. ? FINDINGS:? ? Bones:? No acute fracture or subluxation.? There is moderate hallux valgus at the 1st MTP.? There are corticated juxta-articular erosions along the medial head of the 1st metatarsal.? Mild hammertoe deformity.? Prominent plantar calcaneal spur. ? Soft tissues:? No tibiotalar joint effusion.? Achilles tendon appears normal.? Mild soft tissue thickening along the medial side of the 1st MTP joint.? No calcifications.? ? ? IMPRESSION:? ? 1. Chronic appearing changes of gout at the 1st MTP. ? 2. Hallux valgus.? ? ? Dictated by: Joanne Jackson M.D. on 10/14/2022 at 17:08 ? ? Approved by: Joanne Jackson M.D. on 10/14/2022 at 17:10 ? MDM Narrative Medical decision making narrative: This is a 72-year-old female who presents to the emergency department with multiple medical problems but concerning for right foot pain with a history of gout flares. Patient has a history of diabetes, recent TAVR is not anticoagulat ed, has a supervisor intermediates in new medications for her diabetes and states that all of her symptoms have been improving except for her right foot pain over the MTP joint of the great toe which has been flaring on and off for the last 3 months. She does not take allopurinol although it is prescribed for her for prevention. Patient was not convinced that this is a glove flare and request lab work and imaging. Right foot x-ray shows chronic appearing changes of gout at the 1st MTP joint, hallux valgus, her lab work today is comparable to the last time she had a severe gout flare in 2020, mild leukocytosis of 11.4, ESR is mildly elevated at 35, last year was 29, elevated uric acid at 8.2 which is consistent with her prior during that gout flare of 8.3, CRP is mildly elevated at 2.4 with a BNP of 224. Patient does not have significant edema to the lower extremities, nonpitting, was treated with 1.2 mg of colchicine, remarkably improved over that 1 hour and requested a 3rd dose, she was given a total of 1.8 mg of colchicine, 15 mg of IM Toradol, recommended to follow-up with her primary doctor as to when to restart her allopurinol. She was given 30 days of treatment of colchicine, naproxen as needed for pain, she is not anticoagulated. She has a supervisor intermediates whom she would be able to follow-up with I encouraged her to get orthotics made for her shoes since she has frequent gout flares. Differential includes cellulitis, diabetic neuropathy, venous stasis ulcer, DVT, osteomyelitis. Pa tient is appropriate and amenable to discharge home. Vital signs are stable on repeat examination is unremarkable. Patient has been informed of results. Patient has been given strict return to ER precautions for any new or worsening symptoms. Patient understands to follow up closely with outpatient providers as instructed. Patient understands plan and agrees to discharge home. All questions and concerns answered at this time. <Carloz Herrera, - Last Filed: 10/14/22 18:05> Lab Data Labs: Lab Results 10/14/22 10/14/22 Range/Units 17:10 17:10 WBC 11.4 H (4.5-11.0) X10^3/uL RBC 4.50 (4.0-5.2) X10^6/uL Hgb 12.9 (12.0-16.0) g/dL Hct 38.3 (36-46) % MCV 85.0 (80-100) fL MCH 28.7 (26-34) PG MCHC 33.8 (30-36) % RDW 14.3 (11.6-14.8) % Plt Count 301 (150-400) X10^3/uL Neut % (Auto) 71.7 (50-75) % Lymph % (Auto) 20.7 L (25-40) % [place] % (Auto) 5.1 (3-14) % Eos % (Auto) 1.7 L (2-4) % Baso % (Auto) 0.8 (0-2) % Neut # (Auto) 8200 H (3507-4263) /uL Lymph # (Auto) 2300 (7731-1768) /uL [place] # (Auto) 600 (0-900) /uL Eos # (Auto) 200 (0-450) /uL Baso # (Auto) 100 (0-100) /uL ESR 35 H (0-20) MM/HR Sodium 139 (137-145) mmol/L Potassium 4.2 (3.4-5.1) mmol/L Chloride 103 (98-107) mmol/L Carbon Dioxide 25 (22-32) mmol/L BUN 19 H (7-17) mg/dL Creatinine 0.74 (0.52-1.04) mg/dL Estimated GFR > 60 (>60) mL/min BUN/Creatinine Ratio 25.7 H (6-22) Glucose 99 (80-110) mg/dL Uric Acid 8.2 H (2.5-6.2) mg/dL Calcium 9.5 (8.4-10.2) mg/dL Total Bilirubin 0.3 (0.2-1.3) mg/dL AST 29 (14-36) IU/L ALT 26 (<35) IU/L Alkaline Phosphatase 69 (38-126) U/L C-Reactive Protein 2.4 H (<1.0) mg/dL NT-Pro-B Natriuret Pep 224 H (<125) pg/mL Total Protein 7.8 (6.3-8.2) g/dL Albumin 4.3 (3.5-5.0) g/dL Globulin 3.5 (1.7-4.1) g/dL Albumin/Globulin Ratio 1.2 (1.0-2.8) Discharge Plan Departure Patient Disposition: Home Clinical Impression: History of gout, History of diabetes mellitus, History of rheumatic fever Gout Qualifiers: Gout site: foot Gout etiology: unspecified cause Chronicity: chronic Laterality: right Qualified Code(s): M1A.0710 - Idiopathic chronic gout, right ankle and foot, without tophus (tophi) Acquired hallux valgus Qualifiers: Laterality: right Qualified Code(s): M20.11 - Hallux valgus (acquired), right foot Instructions: Gout, Higher Vitamin C Intake Associated With Lower Risk of Gout Activity Restrictions/Additional Instructions: *You have been diagnosed with gout flare of your right great toe MTP joint. X- ray shows chronic gouty changes to your right MTP joint, your uric acid is 8.2 which is similar to the level you had last year at 8.3 with a worse gout flare. Your labs today overall are almost exactly the same as those labs, meaning there is a level of inflammation associated with this and your CRP is mildly elevated at 2.4. Please follow-up with Dixie Penaloza regarding when to start your allopurinol when this gout flare is improved. Please follow-up with your public health registrar or aircraft painter as needed,, please stay hydrated, stay on all of your other me dications as ordered, and return to the emergency department if you have any worsening of your symptoms. Ask your supervisor intermediates if they can make you some orthotics that help you with your gout flares over this forefoot region. *What to do: *Please continue to take your regular medications as directed. [x ] New medication prescriptions sent to your pharmacy: [[facility] ] [ ] New medication written as a paper prescription [ ] No new medications given *Please follow up with your primary care provider in 2-3 days, call for an appointment. Let them know you were seen in the Emergency Department and that we asked that you be seen for follow-up. We will electronically transmit a record of today's note if your PCP is in our system *If you do not have a primary care provider please contact [phone] to establish care with one of the [facility] primary care providers. *Return to Emergency Department if you should have any new, worsening, or concerning symptoms, such as [fever greater than 101F, chills, worsening pain, persistent vomiting or other bothersome symptoms]. Prescriptions: New colchicine 0.6 mg tablet 0.6 mg PO DAILY Qty: 30 0RF naproxen 250 mg tablet 250 mg PO BID PRN (Reason: pain) Qty: 20 0RF hydrocodone-acetaminophen 5-325 mg tablet 1 tab PO BID PRN (Reason: pain) Qty: 14 0RF No Action [DIABETIC VITAMINS] PO QDAY Qty: 0 pneumoc 13-kaiden conj-dip cr(PF) [Prevnar 13 (PF)] 0.5 ML syringe 0.5 ml IM X1 Qty: 1 0RF acyclovir 400 MG tablet 400 mg PO BID Qty: 45 1RF zoster vaccine live (PF) [Zostavax (PF)] 19,400 UNIT/0.65 ML suspension for reconstitution 0.5 ml SQ X1 Qty: 0.5 0RF levothyroxine [Synthroid] 137 MCG tablet 137 mcg PO QAM Qty: 90 1RF Glucose: Home Monitor BID Qty: 1 0RF Glucose: Test Strips BID Qty: 100 3RF Test Strips - Freestyle BID Qty: 180 3RF indomethacin 25 mg capsule 25 mg PO TID Qty: 30 0RF Rx Instructions: administer with food or milk metformin 750 mg tablet extended release 24 hr 750 mg PO DAILY lisinopril 40 mg tablet 40 mg PO DAILY insulin glargine U-300 conc 300 unit/mL (1.5 mL) insulin pen 30 unit SUBCUT DAILY methocarbamol 500 mg tablet 500 mg PO QID PRN aspirin 81 mg tablet,delayed release (DR/EC) 81 mg PO DAILY melatonin 5 mg tablet 5 mg PO BEDTIME PRN Referrals: Finn Coronado MD [Non-Staff] - iDxie Penaloza PA-C [Primary Care Provider] - <Carloz Herrera, - Last Filed: 10/14/22 18:05> Cosign ED Attending Costeodoraature Attestation: Dr Herrera Co-Sign Statement: I was available for consultation during this patient's emergency department visit. This chart is signed by myself for administrative purposes only. I did not have direct contact with this patient during this visit. They were seen independently by the APC.
[2022-10-14 17:21] LABS: Add Manual Diff / Slide Review NO; Basophils Absolute Auto 100 /uL (0-100); Basophils Percent Auto 0.8 % (0-2); Eosinophils Absolute Auto 200 /uL (0-450); Eosinophils Percent Auto 1.7 % (2-4); Hematocrit 38.3 % (36-46); Hemoglobin 12.9 g/dL (12.0-16.0); Lymphocytes Absolute Auto 2300 /uL (1100-4500); Lymphocytes Percent Auto 20.7 % (25-40); Mean Corpuscular HGB Conc 33.8 % (30-36); Mean Corpuscular Hemoglobin 28.7 PG (26-34); Monocytes Absolute Auto 600 /uL (0-900); Monocytes Percent Auto 5.1 % (3-14); Neutrophils Absolute Auto 8200 /uL (1500-7000); Neutrophils Percent Auto 71.7 % (50-75); Platelet Count 301 X10^3/uL (150-400); Red Cell Distribution Width 14.3 % (11.6-14.8); White Blood Cell Count 11.4 X10^3/uL (4.5-11.0)
[2022-10-14 17:30] LABS: Alanine Aminotransferase 26 IU/L (<35); Albumin 4.3 g/dL (3.5-5.0); Albumin Globulin Ratio 1.2 (1.0-2.8); Alkaline Phosphatase 69 U/L (38-126); Aspartate Aminotransferase 29 IU/L (14-36); BUN Creatinine Ratio 25.7 (6-22); Bilirubin Total 0.3 mg/dL (0.2-1.3); Blood Urea Nitrogen 19 mg/dL (7-17); C-Reactive Protein Quant 2.4 mg/dL (<1.0); Calcium 9.5 mg/dL (8.4-10.2); Carbon Dioxide 25 mmol/L (22-32); Chloride 103 mmol/L (98-107); Estimated Glomerular Filt Rate > 60 mL/min (>60); Globulin 3.5 g/dL (1.7-4.1); Glucose 99 mg/dL (80-110); HEMOLYSIS < 15 (0-50); Potassium 4.2 mmol/L (3.4-5.1); Sodium 139 mmol/L (137-145); Total Protein 7.8 g/dL (6.3-8.2); Uric Acid 8.2 mg/dL (2.5-6.2)
[2022-10-14 17:37] LABS: NT-proBNP (BNP-Adult 18+) 224 pg/mL (<125)
[2022-10-14 17:52] LABS: Erythrocyte Sedimentation Rate 35 MM/HR (0-20)
[2022-10-14] MEDS: HYDROCODONE/ACET 5/325 TABLET 1 TAB PO (17:58)
[2022-10-14] MEDS: COLCHICINE 0.6 MG TABLET PO (17:59)
[2022-10-14 18:08] VITALS: BP 170/73; PULSE 72; O2SAT 100
== END 2022-10-14 18:09 | disposition home or self-care (01) ==
PROVIDERS: Emergency Provider Nurse Practitioner Critical Care Medicine; PCP Physician Assistant
DX: M1A.0710 Idiopathic chronic gout, right ankle and foot, without tophus (tophi) (principal); M20.11 Hallux valgus (acquired), right foot; E11.9 Type 2 diabetes mellitus without complications; Z86.79 Personal history of other diseases of the circulatory system
CPT/HCPCS: 36415; 73630; 80053; 83880; 84550; 85025; 85651; 86140; 96372; 99284; J1885

== ENCOUNTER → 2023-03-12 13:45 | Outpatient (CLI) | payer MEDICARE, OTHER, SELFPAY ==
--- NOTE | 2023-03-12 | DI.RAD.S_ITS ---
PROCEDURE: XR LUMBAR SPINE 2-3V INDICATIONS: RIGHT RADICULAR PAIN TECHNIQUE: 3 views of the lumbar spine were acquired. COMPARISON: [facility], CR, XR LUMBAR SPINE 2-3V, 01/26/2019, 11:27. FINDINGS: Bones: Vertebral body height and bone mineralization unremarkable. There is grade 1 retrolisthesis at T12-L1 and anterior listhesis at L4-5. Diffuse disc space narrowing, anterior osteophytes and hypertrophic facet joints noted throughout the exam. Soft tissues: Overlying bowel gas pattern is normal. No suspicious soft tissue calcifications. Surgical clips in the right upper quadrant consistent with cholecystectomy IMPRESSION: Degenerative disc disease and arthropathy. Approved by: Jimi Crystal M.D. on 03/12/2023 at 16:03
== END ==
PROVIDERS: PCP Student in an Organized Health Care Education/Training Program; Referring Provider Internal Medicine; Visit Provider Internal Medicine
DX: M51.16 Intervertebral disc disorders with radiculopathy, lumbar region (principal); M47.26 Other spondylosis with radiculopathy, lumbar region; M79.604 Pain in right leg
CPT/HCPCS: 72100

== ENCOUNTER 2023-03-12 20:32 | Emergency (ER) | payer MEDICARE, OTHER, SELFPAY ==
[2023-03-12 20:38] VITALS: BP 192/84; PULSE 92; RESP 20; TEMP 36.6; O2SAT 96; BMI 40.6
[2023-03-13 00:01] VITALS: BP 192/80; PULSE 77; RESP 20; O2SAT 96
[2023-03-13 01:54] LABS: D Dimer 1117 ng/ml (<500)
--- NOTE | 2023-03-13 01:58 | DI.US.S_ITS ---
PROCEDURE: US PERIPH VENOUS LOW EXTREM RT INDICATIONS: HIGH D-DIMER. PAIN. TECHNIQUE: Real-time imaging, as well as color and pulse Doppler interrogation, were performed of the lower extremity deep veins from the inguinal ligament to the popliteal fossa. COMPARISON: None. FINDINGS: The common femoral, femoral and popliteal veins are normally compressible, and free of intraluminal thrombus. Color and pulse Doppler demonstrate normal phasic intraluminal flow. There is normal augmentation response to distal compression maneuver. At an area of pain involving the right anterior knee, no ultrasound abnormalities can be seen. Along the lateral aspect of the right knee at an additional area of pain, there is a nonspecific fluid collection with internal echoes that measures 2 x 1.8 x 1.6 cm. Along the right medial knee, there is an additional nonspecific fluid collection with internal echoes measures 4.5 x 1.2 x 0.8 cm. Along the lateral aspect of the contralateral left knee, there is a nonspecific fluid collection, with trees internal echoes that measures 5.2 x 2.6 x 1.5 cm. No abnormal vascularity can be seen involving these fluid collections. No Rangel's cyst is seen. IMPRESSION: Negative for deep venous thrombosis. Fluid collections can be seen involving both knees, which may be related to joint effusions. Note: Concordant preliminary findings given by the release manager upon the completion of the examination to Dr. Jeronimo. Note: No significant discrepancy from the preliminary report. Dictated by: Rd Eubanks M.D. on 03/13/2023 at 7:55 Approved by: Rd Eubanks M.D. on 03/13/2023 at 7:58
--- NOTE | 2023-03-13 01:58 | ED.LOWEXIN ---
HPI - Extremity Injury (Lower) General Chief Complaint: Extremity Injury, Lower Stated Complaint: Poss blood clot Time Seen by Provider: 03/13/23 01:47 Source: patient Mode of arrival: Ambulatory History of Present Illness HPI Narrative: Patient is a 73-year-old female history of gout, hypothyroid, presents today for rule out DVT. She reports that she is been having some calf pain. She says that she traveled in a car [address] and then she was little bit sedentary. About 1 week ago she reported waking up with pain in the middle for cast calf it radiated down to her foot. She said she would a similar presentation in October it was treated as gout. Symptoms resolved and went away. She was seen by her PCP today who ordered blood work presumably a dimer and she was told to come to the ER. She is no chest pain shortness of breath or other symptoms. Related Data Home Medications Medication Instructions Recorded Confirmed [DIABETIC VITAMINS] PO QDAY ##0 08/19/16 01/17/20 aspirin 81 mg tablet,delayed 81 mg PO DAILY 12/18/19 01/17/20 release insulin glargine U-300 conc 300 30 unit SUBCUT DAILY 12/18/19 01/17/20 unit/mL (1.5 mL) subcutaneous pen lisinopril 40 mg tablet 40 mg PO DAILY 12/18/19 01/17/20 melatonin 5 mg tablet 5 mg PO BEDTIME PRN 12/18/19 01/17/20 metformin 750 mg tablet,extended 750 mg PO DAILY 12/18/19 01/17/20 release 24 hr methocarbamol 500 mg tablet 500 mg PO QID PRN 12/18/19 01/17/20 Previous Rx's Medication Instructions Recorded acyclovir 400 mg tablet 400 mg PO BID #45 tabs 09/16/16 pneumoc 13-kaiden conj-dip cr(PF) 0.5 0.5 ml IM X1 #1 ea 09/16/16 mL IM syringe (Prevnar 13 (PF)) levothyroxine 137 mcg tablet 137 mcg PO QAM #90 tabs 05/31/17 (Synthroid) zoster vaccine live (PF) 19,400 0.5 ml SQ X1 #0.5 mL 05/31/17 unit/0.65 mL subcutaneous suspension (Zostavax (PF)) Glucose: Home Monitor / BID ##1 06/03/17 Glucose: Test Strips str BID ##100 06/03/17 Test Strips - Freestyle str BID ##180 06/10/17 indomethacin 25 mg capsule 25 mg PO TID #30 caps 05/19/21 colchicine 0.6 mg tablet 0.6 mg PO DAILY until flare is 10/14/22 gone #30 tabs hydrocodone 5 mg-acetaminophen 325 1 tab PO BID PRN pain #14 tabs 10/14/22 mg tablet naproxen 250 mg tablet 250 mg PO BID PRN pain #20 tabs 10/14/22 Allergies Allergy/AdvReac Type Severity Reaction Status Date / Time Sulfa (Sulfonamide Allergy Severe SWOLLEN Verified 03/29/18 07:20 Antibiotics) THROAT [SULFA (SULFONAMIDE ANTIBIOTICS)] exenatide [From BYDUREON] AdvReac Severe Pancreatitis Verified 03/29/18 07:20 Swelling in throat Hhguyou-TBC-DiF Reductase AdvReac Intermediate RASH AND Verified 03/29/18 07:20 Inhibitor HIVES [[id number] REDUCTASE INHIBITOR] Review of Systems Review of Systems ROS Unobtainable: All systems reviewed & are unremarkable except as noted in HPI and below Patient History Medical History Diabetes Fatigue HTN (hypertension) Morbid obesity with body mass index (BMI) of 40.0 to 49.9 Obstructive sleep apnea Sleep apnea Snoring Surgical History Status post cholecystectomy Family History Brother Coronary artery disease involving [place] coronary artery of [place] heart, angina presence unspecified Peripheral polyneuropathy Father Type 2 diabetes mellitus with other circulatory complication, unspecified residential insulin use status History of asbestosis Alcoholism Grandmother History of breast cancer Mother Chronic obstructive pulmonary disease, unspecified COPD type History of breast cancer History of cervical cancer Alcoholism Sister History of breast cancer Controlled type 2 diabetes mellitus without complication, unspecified buttermaker helper insulin use status Social History household members: none Smoking Status: Never smoker Smoking Status: Never smoker alcohol intake frequency: holidays/special occasions only Substance Use Type: does not use Exam Initial Vital Signs Initial Vital Signs: Vital Signs Temperature 98 F 03/12/23 20:38 Pulse Rate 92 H 03/12/23 20:38 Respiratory Rate 20 03/12/23 20:38 Blood Pressure 192/84 H 03/12/23 20:38 Pulse Oximetry 96 03/12/23 20:38 Oxygen Delivery Method Room Air 03/12/23 20:38 GENERAL: Alert very pleasant 73-year-old and in no acute distress. HEENT: Head atraumatic,EOMI, pupils reactive, face symmetric, moist mucous membranes CARDIOVASCULAR: Regular rate and rhythm without murmurs, rubs or gallops. RESPIRATORY: Breath sounds equal bilaterally, no wheezes rales or rhonchi. ABDOMEN: Soft, nontender. Normoactive bowel sounds all 4 quadrants. No guarding or rebound. EXTREMITIES: Normal range of motion, no clubbing or edema. Neurovascularly intact No significant right leg swelling or erythema no pinpoint tenderness. NEUROLOGICAL: Alert and oriented x4 SKIN: Warm, dry, no laceration, no petechiae, no rashes or lesions. Course Orders Ordered: ED Orders 03/13/23 01:46 DD [D Dimer] Stat 03/13/23 01:58 US periph venous low extrem rt Stat Vital Signs Vital signs: Vital Signs - 8 hr 03/13/23 00:01 03/13/23 03:49 03/13/23 03:51 Pulse Rate 77 75 Respiratory Rate 20 20 Blood Pressure 192/80 H 173/77 H Pulse Oximetry 96 96 Oxygen Delivery Method Room Air Room Air MDM - Extremity Injury (Lower) Lab Data Labs: Lab Results 03/12/23 Range/Units 23:55 D-Dimer 1117 H (<500) ng/ml Imaging Data US - DVT: Radiologist's Impression: Preliminary report negative for right lower extremity deep vein thrombosis nonspecific complex fluid collections about knee MDM Narrative Medical decision making narrative: Patient has right calf pain and foot pain. She was sent here for DVT rule out. She is possibly had a D-dimer that was strongly have no way of seeing what it was. Her symptoms not truly consistent with DVT. She has no swelling or erythema. The pain seems to be moving around but now complaining of just right leg pain ache. D-dimer is 2 quite elevated today 1117. Ultrasound shows rule out DVT. It does mention some fluid collections but she has no erythema she is afebrile this maybe causing some of her pain around her knee. Which could explain some of her calf pain as well. There is really no swelling. I do not think this is gout either. Pretty atypical symptoms. She actually reports that it is feeling better since she treated herself for a gout attack but sent here purely based on blood work and request of PCP. Discharge Plan Departure Patient Disposition: Home Clinical Impression: Acute leg pain Instructions: DI for Leg Pain Activity Restrictions/Additional Instructions: *You have been diagnosed with leg pain *What to do: At this time no evidence blood clot today. Please continue work with your primary care provider and what could be causing her pain. You might be right it might be a simple gout attack but this would be very atypical *Continue to take medications as directed *Follow up with your primary care provider in 2-3 days or call [phone] *Return to ER if you should have leg swelling pain chest pain shortness of breath fever or any new, worsening or concerning symptoms Prescriptions: No Action [DIABETIC VITAMINS] PO QDAY Qty: 0 pneumoc 13-kaiden conj-dip cr(PF) [Prevnar 13 (PF)] 0.5 ML syringe 0.5 ml IM X1 Qty: 1 0RF acyclovir 400 MG tablet 400 mg PO BID Qty: 45 1RF zoster vaccine live (PF) [Zostavax (PF)] 19,400 UNIT/0.65 ML suspension for reconstitution 0.5 ml SQ X1 Qty: 0.5 0RF levothyroxine [Synthroid] 137 MCG tablet 137 mcg PO QAM Qty: 90 1RF Glucose: Home Monitor BID Qty: 1 0RF Glucose: Test Strips BID Qty: 100 3RF Test Strips - Freestyle BID Qty: 180 3RF indomethacin 25 mg capsule 25 mg PO TID Qty: 30 0RF Rx Instructions: administer with food or milk colchicine 0.6 mg tablet 0.6 mg PO DAILY Qty: 30 0RF naproxen 250 mg tablet 250 mg PO BID PRN (Reason: pain) Qty: 20 0RF hydrocodone-acetaminophen 5-325 mg tablet 1 tab PO BID PRN (Reason: pain) Qty: 14 0RF metformin 750 mg tablet extended release 24 hr 750 mg PO DAILY lisinopril 40 mg tablet 40 mg PO DAILY insulin glargine U-300 conc 300 unit/mL (1.5 mL) insulin pen 30 unit SUBCUT DAILY methocarbamol 500 mg tablet 500 mg PO QID PRN aspirin 81 mg tablet,delayed release (DR/EC) 81 mg PO DAILY melatonin 5 mg tablet 5 mg PO BEDTIME PRN Referrals: Samantha Simmons, [facility] [Primary Care Provider] - Stand Alone Forms: Patient Portal/API
[2023-03-13 03:49] VITALS: BP 173/77; PULSE 75; RESP 20; O2SAT 96
== END 2023-03-13 03:51 | disposition home or self-care (01) ==
PROVIDERS: Emergency Provider Emergency Medicine; PCP Student in an Organized Health Care Education/Training Program
DX: M79.661 Pain in right lower leg (principal); M51.16 Intervertebral disc disorders with radiculopathy, lumbar region; M47.26 Other spondylosis with radiculopathy, lumbar region; M79.604 Pain in right leg
CPT/HCPCS: 36415; 72100; 85379; 93971; 99283